=== PATIENT | female | born 1990 | race Caucasian/White ===

== ENCOUNTER 2018-07-18 01:10 | Emergency (ER) | payer OTHER ==
[~2018-07-18] VITALS: Ht 167.6 cm; Wt 95.7 kg
--- OUTSIDE RECORDS SUMMARY | 2018-07-18 01:13 | XMS REPORT ---
Author Author [facility] Address Unknown Phone Unavailable Care Team Providers Care Merry Go Round Attendant Name Role Phone Unavailable Unavailable Problems This patient has no known problems. Allergies, Adverse Reactions, Alerts This patient has no known allergies or adverse reactions. Medications This patient has no known medications.
== END 2018-07-18 01:50 | disposition home or self-care (01) ==
LOC: FSED 01:10
DX: O26.892 Other specified pregnancy related conditions, second trimester (principal); Z3A.21 21 weeks gestation of pregnancy
CPT/HCPCS: 93005; 99283

== ENCOUNTER 2018-09-18 20:03 | Emergency (ER) | payer OTHER ==
[~2018-09-18] VITALS: Ht 167.6 cm; Wt 95.7 kg
[2018-09-18] MEDS ORDERED: ONDANSETRON HCL 4 MG ORAL DISINTEGRATING TAB ONE (20:29)
== END 2018-09-18 21:28 | disposition home or self-care (01) ==
LOC: FSED 20:03
DX: J00 Acute nasopharyngitis [common cold] (principal); R11.0 Nausea
CPT/HCPCS: 99283; Q0162

== ENCOUNTER 2018-11-27 02:52 | Observation (INO) | payer OTHER ==
[~2018-11-27] VITALS: Ht 167.6 cm; Wt 92.6 kg
--- OUTSIDE RECORDS SUMMARY | 2018-11-27 02:55 | XMS REPORT | Summary of Care ---
Author Author [facility] - Health Organization [facility] - Health Address Unknown Phone Unavailable Care Team Providers Care Bedspread Cutter Name Role Phone Francisco Breaux PCP [facility] Unavailable Reason for Referral * (KENNEDY) Referred By Contact Referred To Contact Status Reason Specialty Diagnoses / [place] [address] [place] [address] New Request Psychology, Diagnoses Clinical Child & mood Adolescent disturbance P rocedures CONSULT/REFERRAL CONSTRUCTION GRIP PSYCHOLOGY/MENTAL HEALTH Reason for Visit * Reason Comments MOOD CHANGES * (Routine) Referred By Contact Referred To Contact Status Reason Specialty Diagnoses / Procedures Yuni Castro MD [id number] [place] [address] New Request OB-GYNECOLOGY / Diagnoses Obstetrics & Multiparity Gynecology Obesity affecting in third trimester Normal spontaneous vaginal delivery Acute blood loss anemia P rocedures Discharge Follow-Up: Specialty Service OB-GYNECOLOGY; 4-6 Weeks Encounter Details Care Team Description Date [place] [address] [place] [address] mood disturbance (Primary Dx) 11/20/2018 Routine [facility], [address], [address] [place] [address] Allergies No Known Allergiesdocumented as of this encounter (statuses as of 11/20/2018) Medications No known medicationsdocumented as of this encounter (statuses as of 11/20/2018) Active Problems Problem Noted Date Acute blood loss anemia 11/15/2018 Normal spontaneous vaginal delivery 11/14/2018 39 weeks gestation of 11/13/2018 Multiparity 11/13/2018 Obesity affecting in third trimester 11/13/2018 care, subsequent , first trimester 03/19/2018 Obesity (BMI 30-39.9) 07/05/2017 Pelvic mass in female 05/16/2017 Pain pelvic 05/15/2017 Corpus luteum cyst or hematoma 04/19/2017 Overview: Added automatically from request for surgery [id number] Dysmenorrhea 04/19/2017 Overview: Added automatically from request for surgery [id number] Right knee pain 09/10/2014 Muscle tightness 09/10/2014 Decreased strength 09/10/2014 Poor body mechanics 09/10/2014 Knee stiffness, right 08/28/2014 Genu valgum, right 08/28/2014 Knee crepitus, right 08/28/2014 Quadriceps tendinitis 08/28/2014 It band syndrome, right 08/28/2014 Presence of intrauterine contraceptive device 10/08/2013 Hemorrhagic ovarian cyst 10/08/2013 General counseling for initiation of other contraceptive measures 03/11/2013 Screening for STD (sexually transmitted disease) 03/11/2013 Encounter for routine gynecological examination 03/11/2013 Overview: ICD10 Diagnosis Term Chief Of Planning Utility documented as of this encounter (statuses as of 11/20/2018) Immunizations Name Administration Dates Next Due TDAP (ADACEL) VACCINE 09/10/2018 documented as of this encounter Social History Date Tobacco Use Types Packs/Day Years Used Quit: 04/24/2013 Former Smoker Cigarettes Smokeless Tobacco: Never Used Drinks/Week oz/Week Comments Alcohol Use rarely Yes Financial Resource Strain Answer Date Recorded How hard is it for you to pay for the very basics Not hard at all 11/13/2018 like food, housing, medical care, and heating? Food Insecurity Answer Date Recorded Within the past 12 months, you worried that your Never true 11/13/2018 food would run out before you got money to buy more. Within the past 12 months, the food you bought Never true 11/13/2018 just didn't last and you didn't have money to get more. Transportation Needs Answer Date Recorded In the past 12 months, has lack of transportation No 11/13/2018 kept you from medical appointments or from getting medications? In the past 12 months, has lack of transportation No 11/13/2018 kept you from meetings, work, or getting things needed for daily living? Sex Assigned at Date Recorded Not on file Industry Job Start Date Occupation Not on file Not on file Not on file Travel End Travel History Travel Start No recent travel history available. documented as of this encounter Last Filed Vital Signs Reading Time Taken Comments Vital Sign 128/82 11/20/2018 1:10 PM CDT Blood Pressure 80 11/20/2018 1:10 PM CDT Pulse - - Temperature - - Respiratory Rate - - Oxygen Saturation - - Inhaled Oxygen Concentration 91.6 kg (202 lb) 11/20/2018 1:10 PM CDT Weight 167.6 cm (5' 6") 11/20/2018 1:10 PM CDT Height 32.6 11/20/2018 1:10 PM CDT Body Mass Index documented in this encounter Progress Notes * Sandip Estevez MD - 11/20/2018 1:15 PM CDT Chief complaint: Chief Complaint Patient presents with MOOD CHANGES HPI Yoanna Hunter is a 28 year old female s/p on 11/13/18 who presents f or recurrent crying episodes. Pt reports sadness, mostly due to her dianna ontiveros unavailable as he is working and going to school. -She states she has help at home as her sister and [id number] are there to as sist around the house and with the baby however she is having a hard time dealin g with her being unavailable -Denies SI/HI Histories OB History Para Term AB Living 3 2 2 1 2 SAB TAB Ectopic Multiple Live Births 1 1 2 # Outcome Date GA Lbr Jun/2nd Weight Sex Delivery Anes PTL Lv 3A Term 11/13/18 39w2d 8 lb 14.9 oz (4.05 kg) M NORMAL SPONT EPI, Local N JADEN Comments: Time of : 7:38 PM Maternal Age: 27 y/o; :3; Parity:2 Mother's Blood Type:A pos Baby's Blood Type:not applicable Maternal Serological Test:normal Maternal Group B Strep Screening:negative; Adequate Treatment:not applicable 3B Term 2 Term 12/01/10 39w0d 8 lb 1 oz (3.657 kg) M Vag-Spont EPIDURAL JADEN 1 SAB 2010 Obstetric Comments No D&C w/SAB in 2010 Past Medical History: Diagnosis Date Acute blood loss anemia 11/15/2018 Encounter for IUD removal 09/11/[address] Fernandez in clinic. Endocrine disorder Former cigarette smoker Hemorrhagic ovarian cyst 10/08/2013 Pap smear abnormality of cervix ASCUS 02/2013 Family History Problem Relation Age of Onset Diabetes Father Hypertension Mother Alcohol abuse Mother Diabetes Paternal Grandmother Family Status Relation Name Status Fa Alive Mo 2 yrs ago, Alcohol abuse PGMo (Not Specified) Past Surgical History: Procedure Laterality Date DIAGNOSTIC LAPAROSCOPY N/A 07/05/2017 Surgeon: Aníbal Shaver; Location: [place] [facility] INSERT INTRAUTERINE DEVICE 03/15/2013 MIRENA KNEE SCOPE,DIAGNOSTIC 2008 MASS EXCISION N/A 07/05/2017 Surgeon: Aníbal Shaver; Location: [facility] SUREPATH AND HPV-Q 03/11/2013 ASCUS HPV NEGATIVE Social History Socioeconomic History Marital status: Spouse name: German Ace Number of children: 1 Years of education: Not on file Highest education level: Not on file Occupational History Occupation: Stay at Home Mom Social Needs Financial resource strain: Not hard at all Food insecurity: Worry: Never true Inability: Never true Transportation needs: Medical: No Non-medical: No Tobacco Use Smoking status: Former Smoker Types: Cigarettes Last attempt to quit: 04/24/2013 Years since quittin.5 Smokeless tobacco: Never Used Substance and Sexual Activity Alcohol use: Yes Comment: rarely Drug use: No Sexual activity: Yes Partners: Male control/protection: Condom, IUD Comment: mirena iud inserted 03-15-13 Lifestyle Physical activity: Days per week: Not on file Minutes per session: Not on file Stress: Not on file Relationships Social connections: Talks on phone: Not on file Gets together: Not on file Attends pentecostalism service: Not on file Active member of club or organization: Not on file Attends meetings of clubs or organizations: Not on file Relationship status: Not on file Intimate partner violence: Fear of current or ex partner: Not on file Emotionally abused: Not on file Physically abused: Not on file Forced sexual activity: Not on file Other Topics Concern Not on file Social History Narrative Alin carmen. Social History Substance and Sexual Activity Sexual Activity Yes Partners: Male control/protection: Condom, IUD Comment: mirena iud inserted 03-15-13 Allergies Yoanna has No Known Allergies. Medications Yoanna currently has no medications in their medication list. Review of Systems Constitutional: Negative. Respiratory: Negative. Psychiatric/Behavioral: As per HPI BP 128/82 | Pulse 80 | Ht 5' 6" (1.676 m) | Wt 202 lb (91.6 kg) | LMP 2017 | BMI 32.60 kg/m Pregravid BMI: Could not be calculated Physical Exam Vitals reviewed. Constitutional: Her body habitus is normal. Pulmonary/Chest: Normal inspiratory effort. Neuro/Psychiatric: She has a normal mood and affect. 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 Will place referral to ob psychology, will have patient f/u in 3 weeks, will p katharine for tesuque survey at that visit. ER warnings discussed with the patient an d encouraged open communication with her and family Plan: CONSULT/REFERRAL CONSTRUCTION GRIP PSYCHOLOGY/MENTAL HEALTH SANDIP ESTEVEZ MD #[id number], 11/20/2018 1:56 PM documented in this encounter Plan of Treatment Health Maintenance Due Date Last Done Comments INFLUENZA VACCINE 12/23/2018 PAP SMEAR 04/04/2021 04/04/2018, 02/09/2017, 03/11/2013 DTaP,Tdap,and Td Vaccines 09/10/2028 09/10/2018 (2 - Td) PNEUMOCOCCAL 0-64 YEARS Aged Out No longer eligible based COMBINED SERIES on patient's age to complete this topic documented as of this encounter Results Not on filedocumented in this encounter Visit Diagnoses Diagnosis mood disturbance - Primary Mental disorders of mother, complicating , childbirth, or the puerperium, unspecified as to episode of care documented in this encounter Insurance Type Payer Benefit Subscriber ID Effective Phone Address Plan / Dates Group Medicaid [employer] [place] xxxxxxxxx 2013- PLAN - MANAGED MEDICAID STAR Present documented as of this encounter
--- OUTSIDE RECORDS SUMMARY | 2018-11-27 02:55 | XMS REPORT | Summary of Care ---
Author Author [facility] - Health Organization [facility] - Health Address Unknown Phone Unavailable Care Team Providers Care Senior It Recruiter Name Role Phone Francisco Breaux PCP Mann Beck Unavailable Reason for Referral * (Routine) Referred By Contact Referred To Contact Status Reason Specialty Diagnoses / Procedures Yuni Castro MD [address] [place] [address] New Request OB-GYNECOLOGY Diagnoses Multiparity Obesity affecting in third trimester Normal spontaneous vaginal delivery Acute blood loss anemia P rocedures Discharge Follow-Up: Specialty Service OB-GYNECOLOGY; 4-6 Weeks Reason for Visit * Auth/Cert Referred By Contact Referred To Contact Status Reason Specialty Diagnoses / Procedures Clc [address] [place] [address] Obstetrics Diagnoses INDUCTION Encounter Details Care Team Description Date Type Department Yuni Castro MD [address] [place] [address] 39 weeks gestation of 11/13/2018 [facility] Labor and - Encounter Delivery Unit CLC 5A 11/15/2018 [address] [place] [address] Allergies No Known Allergiesdocumented as of this encounter (statuses as of 11/15/2018) Medications No known medicationsdocumented as of this encounter (statuses as of 11/15/2018) Active Problems Problem Noted Date Acute blood loss anemia 11/15/2018 Normal spontaneous vaginal delivery 11/14/2018 39 weeks gestation of 11/13/2018 Multiparity 11/13/2018 Obesity affecting in third trimester 11/13/2018 care, subsequent , first trimester 03/19/2018 Obesity (BMI 30-39.9) 07/05/2017 Pelvic mass in female 05/16/2017 Pain pelvic 05/15/2017 Corpus luteum cyst or hematoma 04/19/2017 Overview: Added automatically from request for surgery [id number] Dysmenorrhea 04/19/2017 Overview: Added automatically from request for surgery [id number] Right knee pain 09/10/2014 Muscle tightness 09/10/2014 [...] gynecological examination 03/11/2013 Overview: ICD10 Diagnosis Term [employer] Utility Estimated Date of Delivery Comments Yes 11/18/2018 Based on last menstrual period of 02/11/2018 documented as of this encounter (statuses as of 11/15/2018) Immunizations Name Administration Dates Next Due TDAP (ADACEL) VACCINE 09/10/2018 documented as of this encounter Social History Date Tobacco Use Types Packs/Day Years Used Quit: 04/24/2013 Former Smoker Cigarettes Smokeless Tobacco: Never Used Tobacco Cessation: Counseling Given: No Drinks/Week oz/Week Comments Alcohol Use rarely Yes [...] or getting things needed for daily living? Estimated Date of Delivery Comments Yes 11/18/2018 Based on last menstrual period of 02/11/2018 Sex Assigned at Date Recorded Not on file Industry Job Start Date Occupation Not on file Not on file Not on file Travel End Travel History Travel Start No recent travel history available. documented as of this encounter Last Filed Vital Signs Reading Time Taken Comments Vital Sign 114/71 11/15/2018 8:00 AM CDT Blood Pressure 80 11/15/2018 8:00 AM CDT Pulse 37.1 C (98.8 F) 11/15/2018 8:00 AM CDT Temperature 18 11/15/2018 8:00 AM CDT Respiratory Rate 99% 11/15/2018 8:00 AM CDT Oxygen Saturation - - Inhaled Oxygen Concentration 102.1 kg (225 lb) 11/13/2018 6:52 AM CDT Weight 167.6 cm (5' 6") 11/13/2018 6:52 AM CDT Height 36.32 11/13/2018 6:52 AM CDT Body Mass Index documented in this encounter Discharge Summaries * Yuni Castro MD - 11/15/2018 12:02 PM CDT DISCHARGE SUMMARY - VAGINAL DELIVERY Date of Service: 11/15/18 ADMIT DATE: 11/13/2018 DISCHARGE DATE: 11/15/18 ATTENDING MD: Dr. Sawyer Rahman ATTENDING MD AT DISCHARGE: Yuni Castro MD PCP: Francisco Breaux REASON FOR ADMISSION Admit For: Induction of labor FINAL DIAGNOSIS: (the reason, after study, for admitting the patient to the hosp ital) S/P Vaginal Delivery SECONDARY DIAGNOSIS: (any diagnosis that, on this admission, required clinical e valuation, therapeutic treatment, diagnostic procedures, extended hospital stay, or additional nursing care/monitoring) Principal Problem: 39 weeks gestation of (11/13/2018) POA: Yes -S/p -Routine PP Care -Stable for d/c home today Active Problems: Multiparity (11/13/2018) POA: Yes -F/u outpt Obesity affecting in third trimester (11/13/2018) POA: Yes -F/u outpt Normal spontaneous vaginal delivery (11/14/2018) POA: Yes -Routine PP care Acute blood loss anemia (11/15/2018) POA: No -iron PRINCIPAL PROCEDURE: Cephalic vaginal delivery ADDITIONAL PROCEDURES: N/A SIGNIFICANT LAB/X-RAYS: HCT (%) Date Value 11/14/2018 26.9 (L) HGB (g/dL) Date Value 11/14/2018 8.7 (L) 11/13/2018 11.1 (L) Rubella: immune Type and Screen: RH postive DIET: Regular diet ACTIVITY: no strenuous activity, no heavy lifting and pelvic rest Condition: Good DISCHARGE MEDICATIONS: There are no discharge medications for this patient. WOUND CARE: keep perineum clean and dry DISCHARGE: Discharged: Home FOLLOW-UP APPOINTMENT: With Dr. Rahman in 4-6 week(s) Yuni Castro MD documented in this encounter Discharge Instructions * Instructions* Bc Cornejo RN - 11/15/2018 Multidisciplinary Discharge Instructions (may include diet, dressing changes, ac tivity limits, written materials given to patient: DIET: Eat a well balanced diet; drink 6-8 glasses of fluids daily; eat fruits an d green, leafy vegetables. DAILY ACTIVITIES: 1. As much as you feel able to do. Rest when you are tired. 2. Limitations: Specify; No heavy lifting other than your baby for 4 weeks if y ou had surgery. TREATMENT AT HOME 1. Use a well-fitting bra to prevent breast engorgement 2. Resume intercourse as instructed by your physician. 3. Do not use douches or tampons for four weeks. 4. To help prevent urinary tract infection; after each urination and bowel movement, wipe and dry from front to back and change paula pad. 5. Follow discharge instructions regarding baby care. 6. Follow family planning instructions. IMMEDIATE TREATMENT - Call Clinic or Your Physician 1. Increase in pain and tenderness of uterus. 2. Increased vaginal bleeding (bright red blood which soaks 2 pads in 1 hour or pass large clots). 3. Foul smelling vaginal discharge. 4. Burning in the tube that empties the urine from the bladder. 5. Painful breast engorgement or cracked nipples. 6. Pain, discharges, or gaping incision. 7. Temperature greater than 38.0C or 100.4F 8. Pain and tenderness of calf or thigh muscles. 9. No bowel movements in 4 days. For Problems or Questions Call: OB Clinic Family Planning [phone] or Emergency: Go to the closest emergency room or call 911 documented in this encounter Progress Notes * Yuni Castro MD - 11/15/2018 12:01 PM CDT PROGRESS NOTE Subjective: Patient is a 28 year old, S/P , post day 2. She complains of nothing, desires d/c home today. Objective: Vital Signs: BP: (105-114)/(69-71) Temp: [36.9 C (98.5 F)-37.1 C (98.8 F)] Temp source: Oral (11/15 0800) Pulse: [80] Resp: [18] SpO2: [99 %-100 %] Height: -- Weight: -- BMI (calculated): -- Physical Exam: Gen: NAD Chest: RRR, CTAB Abd: NT/ND, fundus firm at umbilicus LE: No TTP/edema Current Medications: Current Facility-Administered Medications Medication Dose Route Frequency Last Rate Last Dose ferrous sulfate tablet 325 mg 325 mg Oral BID 325 mg at 11/14/18 0800 acetaminophen (TYLENOL) tablet 650 mg 650 mg Oral Q6HPRN 650 mg at 1437 benzocaine-menthol (DERMOPLAST) 20-0.5 % topical spray Topical PRN diphenhydrAMINE (BENADRYL) tablet 25 mg 25 mg Oral Q6HPRN docusate calcium (SURFAK) capsule 240 mg 240 mg Oral QDAILYPRN HYDROcodone-acetaminophen (NORCO 5) 5-325 mg tablet 1 tablet 1 tablet Oral Q4HPRN 1 tablet at 11/13/18 2327 ibuprofen (IBU) tablet 600 mg 600 mg Oral Q6HPRN 600 mg at 11/14/18 1437 magnesium hydroxide (MILK OF MAGNESIA) 400 mg/5 mL suspension 30 mL 30 mL O ral QDAILYPRN ondansetron (ZOFRAN (PF)) injection 4 mg 4 mg Slow IV Push Q8HPRN vitamin w/FA (PRENATABS RX) tablet 1 tablet 1 tablet Oral DAILY simethicone (GAS RELIEF) chewable tablet 160 mg 160 mg Oral PC+HSPRN zolpidem (AMBIEN) tablet 5 mg 5 mg Oral QHSPRN Labs: N/A Assessment/Plan: Principal Problem: 39 weeks gestation of (11/13/2018) POA: Yes -S/p -Routine PP Care -Stable for d/c home today Active Problems: Multiparity (11/13/2018) POA: Yes -F/u outpt Obesity affecting in third trimester (11/13/2018) POA: Yes -F/u outpt Normal spontaneous vaginal delivery (11/14/2018) POA: Yes -Routine PP care Acute blood loss anemia (11/15/2018) POA: No -iron Yuni Castro MD * Patricia Pierre FNP - 11/14/2018 10:45 AM CDT BC HUNTER #: [id number] Date of service: 11/14/2018 SUBJECT SCIENTIFIC RESEARCH PROGRESS NOTE SUBJECTIVE: Overnight patient had no complaints. She denied headache, nausea/vomiting, [address] pain/pressure, shortness of breath, RUQ pain, vision disturbance. Patient was tolerating regular diet. She reported pain was controlled with pain meds. Void ing and ambulating without difficulty. She has passed flatus and has not had a bowel movement. Lochia was minimal. OBJECTIVE: BP: (95-172)/(46-90) Temp: [36.7 C (98.1 F)-37.9 C (100.3 F)] Temp source: Oral (11/14 1059) Pulse: [65-147] Resp: [18-20] SpO2: [97 %-100 %] Height: -- Weight: -- Intake/Output Summary (Last 24 hours) at 11/14/2018 1132 Last data filed at 11/14/2018 0215 Gross per 24 hour Intake 2009 ml Output 1340 ml Net 670 ml CONSTITUTIONAL: no apparent distress, appearing age-appropriate. RESPIRATORY: good inspiratory effort to inspections, lungs clear to auscultatio n bilaterally. No wheeze/stridor/crackles bilaterally. CARDIOVASCULAR: regular rate and rhythm. No rubs/gallops/murmurs. GASTROINTESTINAL: abdomen soft, non distended, bowel sound present and active. NEUROLOGICAL/PSYCHIATRIC: alert, awake, and oriented x 3. Normal mood and affec t. EXTREMITIES: No calf tenderness bilaterally. no pitting edema bilaterally. : fundus firm and below umbilicus Labs: WBC (10*3/L) Date Value 11/14/2018 19.29 (H) 11/13/2018 16.59 (H) HGB (g/dL) Date Value 11/14/2018 8.7 (L) 11/13/2018 11.1 (L) HCT (%) Date Value 11/14/2018 26.9 (L) 11/13/2018 34.8 (L) PLT (10*3/L) Date Value 11/14/2018 183 11/13/2018 228 Medications: Current Facility-Administered Medications Medication Dose Route Frequency Last Rate Last Dose ferrous sulfate tablet 325 mg 325 mg Oral BID 325 mg at 11/14/18 0800 acetaminophen (TYLENOL) tablet 650 mg 650 mg Oral Q6HPRN benzocaine-menthol (DERMOPLAST) 20-0.5 % topical spray Topical PRN diphenhydrAMINE (BENADRYL) tablet 25 mg 25 mg Oral Q6HPRN docusate calcium (SURFAK) capsule 240 mg 240 mg Oral QDAILYPRN HYDROcodone-acetaminophen (NORCO 5) 5-325 mg tablet 1 tablet 1 tablet Oral Q4HPRN 1 tablet at 11/13/18 2327 ibuprofen (IBU) tablet 600 mg 600 mg Oral Q6HPRN 600 mg at 11/13/18 2046 magnesium hydroxide (MILK OF MAGNESIA) 400 mg/5 mL suspension 30 mL 30 mL O ral QDAILYPRN ondansetron (ZOFRAN (PF)) injection 4 mg 4 mg Slow IV Push Q8HPRN vitamin w/FA (PRENATABS RX) tablet 1 tablet 1 tablet Oral DAILY simethicone (GAS RELIEF) chewable tablet 160 mg 160 mg Oral PC+HSPRN zolpidem (AMBIEN) tablet 5 mg 5 mg Oral QHSPRN ASSESSMENT Bc Hunter is a 28 year old female s/p spontaneous vaginal delivery on 11/13 @ 1938, day #1. Patient is recovering well: responding appropriately, good urine output, adequate pain control, and stable vitals. PLAN 1. Review: - Estimated blood loss: 450 ml - Vaginal delivery Complications: none -Laceration/epis: 2nd deg paula lac - Preop H/H: 11.1/34.8 Postop H/H: 8.7/26.9, PO iron ordered - Rubella: immune - Type and Screen: A and RH postive 2. - A+, sero neg, RI, VzVi, GBS neg - PVT Ahmed 3. care: - Diet: advance as tolerated - Fluid: Encourage oral intake - Activity: Encourage ambulation. - DVT prophylaxis: encourage ambulation Discharge Planning: continue inpt mgmt today. Anticipate d/c home tomorrow. FARNAZ Arreola 11/14/2018 11:32 AM Associated attestation - Sandip Estevez MD - 11/15/2018 6:10 AM CDT Recovering well, anticipate discharge home tomorrow SANDIP ESTEVEZ MD #[id number], 11/15/2018 6:10 AM * Martha Nelson MD - 11/13/2018 12:18 PM CDT OB Progress Note: SVE 4/50/-2, posterior, at 1215. Recommended AROM for augmentation. Patient agreeable with plan. AROM performed at 1215, with return of moderate clear fluid. Reviewed pain management options with patient. Will plan to recheck again in 2-4 hrs or earlier as indicated. Martha Nelson MD 11/13/2018 12:19 PM documented in this encounter Plan of Treatment Order Schedule Name Type Priority Associated Diagnoses ONCE for 1 Occurrences starting 11/13/2018 until 11/13/2018 RHO (D) Immune Globulin LAB Routine Health Maintenance Due Date Last Done Comments INFLUENZA VACCINE 12/23/2018 PAP SMEAR 04/04/2021 04/04/2018, 02/09/2017, 03/11/2013 DTaP,Tdap,and Td Vaccines 09/10/2028 09/10/2018 (2 - Td) PNEUMOCOCCAL 0-64 YEARS Aged Out No longer eligible based COMBINED SERIES on patient's age to complete this topic documented as of this encounter Procedures Comments Procedure Name Priority Date/Time Associated Diagnosis CBC WITH DIFFERENTIAL Routine 11/14/2018 5:12 AM CDT CBC WITH DIFF Routine 11/14/2018 5:12 AM CDT TYPE AND SCREEN Routine 11/13/2018 6:05 AM CDT GALV ONLY - SYPHILIS KENNEDY 11/13/2018 IGG/IGM 6:03 AM CDT CBC WITH DIFFERENTIAL Routine 11/13/2018 6:03 AM CDT ADC, CLC OR LCC ONLY - KENNEDY 11/13/2018 HIV TYPE 1 AND 2 ANTIBODY 6:03 AM CDT SCREEN WITH P24 HEPATITIS B SURFACE KENNEDY 11/13/2018 ANTIGEN 6:03 AM CDT CBC WITH DIFF Routine 11/13/2018 6:03 AM CDT L&D VISIT (NON-DELIVERED) Routine 10/29/2018 12:01 AM CDT documented in this encounter Results * CBC WITH DIFFERENTIAL (11/14/2018 5:12 AM CDT) WBC 19.29 (H) 4.30 - 11.10 [facility] RBC 2.98 (L) 3.93 - 5.25 10*6/L [facility] HGB 8.7 (L) 11.6 - 15.0 g/dL [facility] HCT 26.9 (L) 35.7 - 45.2 % [facility] MCV 90.3 80.6 - 95.5 fL [facility] MCH 29.2 25.9 - 32.8 pg [facility] MCHC 32.3 31.6 - 35.1 g/dL [facility] RDW-SD 43.9 39.0 - 49.9 fL [facility] RDW-CV 13.2 12.0 - 15.5 % [facility] PLT 183 166 - 358 10*3/L [facility] MPV 9.4 (L) 9.5 - 12.9 fL [facility] NRBC/100 WBC 0.0 0.0 - 10.0 /100 WBCs [facility] NRBC x10^3 <0.01 10*3/L [facility] GRAN MAT (NEUT) 76.7 % [facility] % [facility] IMM GRAN % 1.60 % [facility] LYMPH % 13.2 % [facility] MONO % 7.8 % [facility] EOS % 0.5 % [facility] BASO % 0.2 % [facility] GRAN MAT 14.80 (H) 1.88 - 7.09 10*3/uL [facility] x10^3(ANC) [facility] IMM GRAN x10^3 0.30 (H) 0.00 - 0.06 10*3/uL [facility] LYMPH x10^3 2.54 1.32 - 3.29 10*3/uL [facility] MONO x10^3 1.51 (H) 0.33 - 0.92 10*3/uL [facility] EOS x10^3 0.10 0.03 - 0.39 10*3/uL [facility] BASO x10^3 0.04 0.01 - 0.07 10*3/uL [facility] Specimen Blood - HAND, RIGHT Performing Organization Address City/State/Zipcode Phone Number [facility] CLIA: [id number], [address] [place], [place] [id number] [facility] * Type and Screen - ONCE Routine (11/13/2018 6:05 AM CDT) ABO & RH A Positive LAB Comment: Performed at [facility] Laboratory [facility] Blood Bank [address] [place], [place] [address] Toll Free: [phone] CLIA No. [id number] IAT Negative LAB Comment: Performed at [facility] Laboratory Services - [facility] Blood Bank [address] [place], [place] [address] Toll Free: [phone] CLIA No. [id number] Specimen Blood - VENOUS Performing Organization Address City/State/Zipcode Phone Number BLD [facility] * CBC WITH DIFFERENTIAL (11/13/2018 6:03 AM CDT) WBC 16.59 (H) 4.30 - 11.10 [facility] 10*3/L [facility] RBC 3.83 (L) 3.93 - 5.25 10*6/L [facility] HGB 11.1 (L) 11.6 - 15.0 g/dL [facility] HCT 34.8 (L) 35.7 - 45.2 % [facility] MCV 90.9 80.6 - 95.5 fL [facility] MCH 29.0 25.9 - 32.8 pg [facility] MCHC 31.9 31.6 - 35.1 g/dL [facility] RDW-SD 43.8 39.0 - 49.9 fL [facility] RDW-CV 13.3 12.0 - 15.5 % [facility] PLT 228 166 - 358 10*3/L [facility] MPV 10.0 9.5 - 12.9 fL [facility] NRBC/100 WBC 0.0 0.0 - 10.0 /100 WBCs [facility] NRBC x10^3 <0.01 10*3/L [facility] GRAN MAT (NEUT) 75.5 % [facility] % [facility] IMM GRAN % 1.70 % [facility] LYMPH % 14.9 % [facility] MONO % 7.4 % [facility] EOS % 0.4 % [facility] BASO % 0.1 % [facility] GRAN MAT 12.51 (H) 1.88 - 7.09 10*3/uL [facility] x10^3(ANC) [facility] IMM GRAN x10^3 0.28 (H) 0.00 - 0.06 10*3/uL [facility] LYMPH x10^3 2.48 1.32 - 3.29 10*3/uL [facility] MONO x10^3 1.23 (H) 0.33 - 0.92 10*3/uL [facility] EOS x10^3 0.07 0.03 - 0.39 10*3/uL [facility] BASO x10^3 <0.03 0.01 - 0.07 10*3/uL [facility] Specimen Blood - VENOUS Performing Organization Address City/[facility] Phone Number [facility] CLIA: [id number], [address] [place] [address] [facility] * ADC, CLC OR LCC ONLY - HIV TYPE 1 AND 2 ANTIBODY SCREEN WITH P24 (11/13/2018 6:03 AM CDT) HIV 1/2 AG/AB NON-REACTIVE Nonreactive [facility] Specimen Blood - VENOUS Performing Organization Address City/[facility] Phone Number [facility] CLIA: [id number], [address] [place], [place] [address] [facility] * HEPATITIS B SURFACE ANTIGEN (11/13/2018 6:03 AM CDT) HBsAg HEPATITIS B SURFACE ANTIGEN Negative [facility] NEGATIVE [facility] HBsAg 0.04 [facility] Specimen Blood - VENOUS Performing Organization Address City/[facility]/Zipcode Phone Number [facility] CLIA: [id number], [address] [place] [address] [facility] * GALV ONLY - SYPHILIS IGG/IGM (11/13/2018 6:03 AM CDT) Syphilis Non-reactive Non-reactive [facility] IgG/IgM SERVICES Specimen Blood - VENOUS Narrative Performed At Non-reactive - No serologic evidence of T. pallidum infection. Cannot exclude [facility] incubating or early syphilis. Submit a second specimen in 2-4 weeks if syphilis SERVICES is clinically suspected. Equivocal - Further testing to follow. Reactive - Further testing to follow. Performing Organization Address City/State/Zipcode Phone Number [facility] SERVICES CLIA: [id number], [address] [place] [address] [facility] documented in this encounter Visit Diagnoses Diagnosis 39 weeks gestation of - Primary state, incidental Multiparity Obesity affecting in third trimester Normal spontaneous vaginal delivery Normal delivery Acute blood loss anemia Acute posthemorrhagic anemia documented in this encounter Administered Medications Action Date Dose Rate Site Medication Order MAR Action 11/14/2018 2:37 PM CDT 650 mg acetaminophen (TYLENOL) tablet 650 mg Given 650 mg, Oral, Q6HPRN, Starting Mon11/13/18 at 2020, Until Discontinued, Routine, Pain (scale 1-3) 11/13/2018 8:46 PM CDT benzocaine-menthol (DERMOPLAST) 20-0.5 % Given topical spray Topical, PRN, Starting Mon11/13/18 at 2020, Until Discontinued, Routine, Perineum discomfort 11/14/2018 8:00 AM CDT 325 mg ferrous sulfate tablet 325 mg Given 325 mg, Oral, BID, First dose on Mon11/14/18 at 0800, Until Discontinued, Routine 11/13/2018 11:27 PM CDT 1 tablet HYDROcodone-acetaminophen (NORCO 5) Given 5-325 mg tablet 1 tablet 1 tablet, Oral, Q4HPRN, Starting Mon11/13/18 at 2021, Until Discontinued, Routine, Pain (scale 4-6), Pain (scale 7-10) 11/14/2018 2:37 PM CDT 600 mg ibuprofen (IBU) tablet 600 mg Given 600 mg, Oral, Q6HPRN, Starting Mon11/13/18 at 2020, Until Discontinued, Routine, Pain (scale 4-6) 600 mg Given 11/13/2018 8:46 PM CDT Action Date Dose Rate Site Medication Order MAR Action 11/13/2018 6:06 AM CDT 1,000 mL 125 mL/hr lactated ringers IV infusion 1,000 mL New Bag at 125 mL/hr, 1,000 mL, IV Infusion, CONTINUOUS, Starting Mon11/13/18 at 0645, Until Mon11/13/18 at 2022, Routine 11/13/2018 7:57 PM CDT 20 mL lidocaine 1% (XYLOCAINE) 10 mg/mL (1 %) Given injection 30 mL 30 mL, Infiltration, PRN - SEE INSTRUCTIONS, Starting Mon11/13/18 at 0546, Until Mon11/13/18 at 2022, Routine, Local anesthesia, For laceration repair only as a local anesthetic as indicated. 11/13/2018 6:45 PM CDT 20 kylah-units/min 60 mL/hr LR 1000 mL + oxytocin 20 units IV Rate Change Solution 2 kylah-units/min (6 mL/hr), at 6 mL/hr, IV Infusion, TITRATE, Starting Mon11/13/18 at 0546, Until Mon11/13/18 at 2022, KENNEDY, Oxytocin Induction / Augmentation of Labor. 18 kylah-units/min 54 mL/hr Rate Change 11/13/2018 6:00 PM CDT 16 kylah-units/min 48 mL/hr Rate Change 11/13/2018 4:30 PM CDT 11/13/2018 8:48 PM CDT 999 mL/hr LR 1000 mL + oxytocin 20 units IV Given Solution at 999 mL/hr, IV Infusion, ONCE, 1 dose, Mon11/13/18 at 2130, Routine 11/13/2018 3:12 PM CDT 30 mL sodium citrate-citric acid (BICITRA) Given 500-334 mg/5 mL solution 30 mL 30 mL, Oral, PRE-PROCEDURE ONCE, 1 dose, Starting Mon11/13/18 at 0546, Until Mon11/13/18 at 1512, Routine, Surgery/Procedure documented in this encounter Insurance Type Payer Benefit Subscriber ID Effective Phone Address Plan / Dates Group Medicaid [employer] [place] xxxxxxxxx 2013- PLAN - MANAGED MEDICAID STAR Present documented as of this encounter
--- OUTSIDE RECORDS SUMMARY | 2018-11-27 02:55 | XMS REPORT | Summary of Care ---
Author Author [facility] - Health Organization [facility] - Health Address Unknown Phone Unavailable Care Team Providers Care Newspaper Peddler Name Role Phone Francisco Breaux PCP Mann Beck Unavailable Reason for Visit * Reason Comments Assessment Encounter Details Care Team Description Date Type Department Rosalie Rahman, DO [address] [place] [id number] Assessment 11/19/2018 Telephone [facility], [address], [address] [address] Allergies No Known Allergiesdocumented as of this encounter (statuses as of 11/19/2018) Medications No known medicationsdocumented as of this encounter (statuses as of 11/19/2018) Active Problems Problem Noted Date Acute blood loss anemia 11/15/2018 Normal spontaneous vaginal delivery 11/14/2018 39 weeks gestation of 11/13/2018 Multiparity 11/13/2018 Obesity affecting in third trimester 11/13/2018 care, subsequent , first trimester 03/19/2018 Obesity (BMI 30-39.9) 07/05/2017 Pelvic mass in female 05/16/2017 Pain pelvic 05/15/2017 Corpus luteum cyst or hematoma 04/19/2017 Overview: Added automatically from request for surgery [id number] Dysmenorrhea 04/19/2017 Overview: Added automatically from request for surgery [id number] Right knee pain 09/10/2014 Muscle tightness 09/10/2014 [...] gynecological examination 03/11/2013 Overview: ICD10 Diagnosis Term Operations Officer Afloat Utility documented as of this encounter (statuses as of 11/19/2018) Immunizations Name Administration Dates Next Due TDAP [...] of this encounter Last Filed Vital Signs Not on filedocumented in this encounter Plan of Treatment Care Team Description Date [place] [address] [place] [address] [phone] 11/20/2018 Routine Obstetrics & Gynecology Visit Health Maintenance Due Date Last Done Comments INFLUENZA VACCINE 12/23/2018 PAP SMEAR 04/04/2021 04/04/2018, 02/09/2017, 03/11/2013 DTaP,Tdap,and Td Vaccines 09/10/2028 09/10/2018 (2 - Td) PNEUMOCOCCAL 0-64 YEARS Aged Out No longer eligible based COMBINED SERIES on patient's age to complete this topic documented as of this encounter Results Not on filedocumented in this encounter Insurance Type Payer Benefit Subscriber ID Effective Phone Address Plan / Dates Group Medicaid [employer] [place] xxxxxxxxx 2013- PLAN - MANAGED MEDICAID STAR Present documented as of this encounter
--- OUTSIDE RECORDS SUMMARY | 2018-11-27 02:55 | XMS REPORT | Summary of Care ---
Author Author [facility] - Health Organization [facility] - Health Address Unknown Phone Unavailable Care Team Providers Care Biology Professor Name Role Phone Francisco Breaux PCP Mann Beck Unavailable Encounter Details Care Team Description Date Type Department Doctor Unassigned, [place] [address] [place] [address] 11/13/2018 Orders Only [facility] [address] [place] [address] Allergies No Known Allergiesdocumented as of this encounter (statuses as of 11/16/2018) Medications No known medicationsdocumented as of this encounter (statuses as of 11/16/2018) Active Problems Problem Noted Date Acute blood loss anemia 11/15/2018 Normal spontaneous vaginal delivery 11/14/2018 39 weeks gestation of 11/13/2018 Multiparity 11/13/2018 Obesity affecting in third trimester 11/13/2018 care, subsequent , first trimester 03/19/2018 Obesity (BMI 30-39.9) 07/05/2017 Pelvic mass in female 05/16/2017 Pain pelvic 05/15/2017 Corpus luteum cyst or hematoma 04/19/2017 Overview: Added automatically from request for surgery [id number] Dysmenorrhea 04/19/2017 Overview: Added automatically from request for surgery [id number] Right knee pain 09/10/2014 Muscle tightness 09/10/2014 [...] gynecological examination 03/11/2013 Overview: ICD10 Diagnosis Term Facilities Engineering Manager Utility Estimated Date of Delivery Comments Yes 11/18/2018 Based on last menstrual period of 02/11/2018 documented as of this encounter (statuses as of 11/16/2018) Immunizations Name Administration Dates Next Due TDAP [...] filedocumented in this encounter Plan of Treatment Health Maintenance Due Date Last Done Comments INFLUENZA VACCINE 12/23/2018 PAP SMEAR 04/04/2021 04/04/2018, 02/09/2017, 03/11/2013 DTaP,Tdap,and Td Vaccines 09/10/2028 09/10/2018 (2 - Td) PNEUMOCOCCAL 0-64 YEARS Aged Out No longer eligible based COMBINED SERIES on patient's age to complete this topic documented as of this encounter Procedures Comments Procedure Name Priority Date/Time Associated Diagnosis HOSPITAL ADMISSION Routine 11/13/2018 12:01 AM CDT documented in this encounter Results Not on filedocumented in this encounter Insurance Type Payer Benefit Subscriber ID Effective Phone Address Plan / Dates Group Medicaid [employer] [place] xxxxxxxxx 2013- PLAN - MANAGED MEDICAID STAR Present documented as of this encounter
[2018-11-27 03:32] LABS: BILIRUBIN,URINE NEGATIVE (NEGATIVE); COLOR,URINE YELLOW (YELLOW); KETONES,URINE NEGATIVE (NEGATIVE); LEUKOCYTE ESTERASE ,URINE SMALL (NEGATIVE); NITRITE,URINE NEGATIVE (NEGATIVE); PROTEIN,URINE DIPSTICK TRACE (NEGATIVE); URINE UROBILINOGEN 0.2 mg/dL (0.2 - 1)
[2018-11-27 03:36] LABS: CLARITY,URINE CLOUDY (CLEAR)
[2018-11-27 03:37] LABS: PREGNANCY TEST, URINE NEGATIVE (NEGATIVE)
[2018-11-27 03:38] LABS: BASOPHILS # (AUTO) 0.1 (0.0-0.1); BASOPHILS % 0.4 % (0.0-1.0); EOSINOPHILS # (AUTO) 0.1 (0.0-0.4); EOSINOPHILS % 0.8 % (0.0-6.0); HEMATOCRIT 35.6 % (34.2-44.1); HEMOGLOBIN 11.2 g/dL (12.0-16.0); LYMPHOCYTES % 27.8 % (18.0-39.1); MEAN CORPUSCULAR HEMOGLOBIN 27.9 pg (28-32); MEAN CORPUSCULAR HGB CONC 31.5 g/dL (31-35); MEAN CORPUSCULAR VOLUME 88.6 fL (81-99); MONOCYTES # (AUTO) 0.9 (0.2-0.8); MONOCYTES % 6.3 % (4.4-11.3); NEUTROPHILS # (AUTO) 9.2 (2.1-6.9); NEUTROPHILS % 64.3 % (38.7-80.0); PLATELET COUNT 404 x10e3/uL (140-360); RED BLOOD COUNT 4.02 x10e6/uL (3.6-5.1)
[2018-11-27 03:49] LABS: BACTERIA,URINE MANY /HPF; EPITHELIAL CELLS,URINE FEW /LPF; RBC,URINE >50 /HPF (0-5); WBC,URINE (MAN) 21-50 /HPF (0-5)
[2018-11-27 03:50] LABS: MUCUS,URINE FEW (RARE)
[2018-11-27 03:53] LABS: ALANINE AMINOTRANSFERASE 18 IU/L (0-55); ALBUMIN/GLOBULIN RATIO 0.9 (0.8-2.0); ALKALINE PHOSPHATASE 139 IU/L (40-150); BLOOD UREA NITROGEN 13 mg/dL (7-26); BUN/CREATININE RATIO 17 (6-25); CALCIUM 9.2 mg/dL (8.4-10.2); CARBON DIOXIDE 19 mmol/L (22-29); CHLORIDE 109 mmol/L (98-107); CREATINE KINASE 63 IU/L (29-168); CREATININE, SERUM 0.75 mg/dL (0.57-1.11); EST GLOMERULAR FILTRATION RATE > 60 ML/MIN (60-); GLUCOSE 78 mg/dL (74-118); SODIUM 142 mmol/L (136-145)
[2018-11-27] MEDS ORDERED: SODIUM CHLORIDE 0.9% 50ML 50 ML ONE (04:10)
[2018-11-27] MEDS ORDERED: IOPAMIDOL 370 MG/ML 200 ML INFUS..BTL INJ ONE (04:11)
[2018-11-27] MEDS ORDERED: KETOROLAC TROMETHAMINE 30 MG/ML VIAL IV STA (04:49)
[2018-11-27] MEDS ORDERED: CEFTRIAXONE SOD 1 GM VIAL ONE (04:55)
--- NOTE | 2018-11-27 04:57 | Diagnostic Imaging Report ---
EXAM: CT Chest WITH contrast 11/27/2018 3:54 AM INDICATION: Chest pain. Pulmonary embolism. COMPARISON: None TECHNIQUE: Chest was scanned utilizing a multidetector helical scanner from the lung apex through the level of the adrenal glands without administration of IV contrast. Coronal and sagittal reformations were obtained. Pulmonary embolism protocol was performed. IV CONTRAST: 100 mL of Isovue 300 RADIATION DOSE: Total DLP: 578.70 mGy*cm Estimated effective dose: (DLP x 0.014 x size factor) mSv COMPLICATIONS: None FINDINGS: LINES/ TUBES: None. LUNGS AND AIRWAYS: Filling defect within the posterior right lower lobe segmental pulmonary artery as seen on axial images 73 series 2, and coronal reconstruction image 59. There is blood flow distal to it. Questionable nonocclusive filling defect in a posterior inferior right upper lobe segmental artery as seen on coronal image 55. 6 mm pleural-based nodule in the left lung base posteriorly on image 94 series 3. Airways are normal. PLEURA: The pleural spaces are clear. HEART AND MEDIASTINUM: The thyroid gland is normal. No mediastinal, hilar or axillary lymphadenopathy. The heart is normal in size.. There is no pericardial effusion. UPPER ABDOMEN: Limited non-contrast views of the upper abdomen show no abnormality within the visualized liver, spleen, pancreas, or kidneys. The adrenal glands are normal. BONES: The visualized bony thorax is within normal limits. SOFT TISSUES: Unremarkable. IMPRESSION: 1. Nonocclusive thrombus in a posterior right lower lobe segmental pulmonary artery. 2. 6 mm nodule in the left lung base posteriorly. Recommend follow-up CT chest nodule protocol in 6-12 months. Signed by: Dr. Tomás Lozoya M.D. on 11/27/2018 4:53 AM
[2018-11-27] MEDS ORDERED: CEFTRIAXONE SOD 1 GM/NS 50 ML 50 ML IV ONE (05:00)
[2018-11-27] MEDS ORDERED: SODIUM CHLORIDE 0.9% 1000ML 1,000 ML IV SCH ×2 (05:00→13:30)
[2018-11-27] MEDS ORDERED: CEFTRIAXONE SOD 1 GM/NS 50 ML 50 ML IV SCH (05:45)
[2018-11-27] MEDS ORDERED: RIVAROXABAN 20 MG TABLET ONE (05:52)
[2018-11-27] MEDS ORDERED: RIVAROXABAN 20 MG TABLET PO SCH ×2 (06:00→17:00)
--- NOTE | 2018-11-27 06:53 | NUR ---
RECEIVED REPORT FROM BON HERNANDEZ
--- NOTE | 2018-11-27 08:30 | NUR ---
RESTING COMFORTABLE. VSS. FOOD TRAY AT BEDSIDE. PT SLEEPING
--- NOTE | 2018-11-27 10:12 | NUR ---
SLEEPING COMFORTABLY. VSS. SB NO ECTOPY. FM AT BEDSIDE. UPDATED PLAN OF CARE. PENDING VENOUS DOPPLER TECH
--- NOTE | 2018-11-27 12:52 | NUR ---
SEEN IN ER BY DR PALUMBO
--- NOTE | 2018-11-27 13:29 | NUR ---
Patient admitted to unit from ER. Patient arrived via stretcher. patient is AAOx3. patient is post 12 days. Patient noted to have some shortness of breath on exertion. Patient has no c/o chest pain at this time. Ambulates on her own. No edema noted. Patient is having some vaginal bleeding still from having her baby 12 days ago. No other c/o pain at this time. Right AC IV in place.
[2018-11-27 14:23] VITALS: BP 122/63
[2018-11-27 14:27] VITALS: BP 122/63
[2018-11-27 16:01] VITALS: BP 153/83
[2018-11-27] MEDS: SUCRALFATE 1 GM/10 ML SUSP NG SCH ×2 (17:33→21:00)
[2018-11-27] MEDS: PANTOPRAZOLE SOD 40 MG TABEC PO SCH (17:33)
--- NOTE | 2018-11-27 18:10 | History and Physical ---
Medicine History and Physical. CHIEF COMPLAINT: Abdominal pain, chest pain, and shortness of breath. HISTORY OF PRESENT ILLNESS: A 28-year-old female with no past medical history, currently approximately 13 days now, who comes into the ED with complaints of underlying epigastric abdominal pain, left-sided chest pain and shortness of breath. The patient reports this began suddenly yesterday with shortness of breath on the left side and rib cage area. Also, endorses some chest pain. Does report having care. Currently, during my evaluation, she denies any chest pain or any palpitations. CT angiogram of the chest was consistent with a possible nonocclusive thrombus in the right lower segment of the pulmonary artery, which is opposite where she has a current pain. Does report decreased oral intake with underlying dehydration as well. The patient seen and evaluated at bedside on the medical floor in the ER. She is currently doing well with no other issues at this time. Hematology and Cardiology have been consulted. REVIEW OF SYSTEMS: Pertinent positives: Progressive abdominal pain, nausea, vomiting, and left-sided chest pain. Pertinent negatives: Denies any palpitation, dysuria, hematuria, frequency, urgency, lightheadedness, dizziness, cough, congestion, or any other complaints. Rest of the 14-point review of systems are reviewed with the patient and are negative. ALLERGIES: NO KNOWN DRUG ALLERGIES. HOME MEDICATIONS: Reports none. PAST MEDICAL HISTORY: She is currently 13 days now. PAST SURGICAL HISTORY: Reports none. FAMILY HISTORY: Hypertension and diabetes. SOCIAL HISTORY: No drugs. No alcohol. Does not smoke. Good social support. PHYSICAL EXAMINATION: VITAL SIGNS: Temperature is 98.7, pulse , respiratory rate is 16, blood pressure 111/68, and pulse ox 100% on room air. GENERAL: Not in acute distress. Alert and oriented x3. Cooperative on examination. HEENT: Head; normocephalic, atraumatic. Eyes; pupils are equal, round, and reactive to light bilaterally. Extraocular movements intact bilaterally. Throat; no evidence of erythema or exudates in the posterior pharynx. Has poor dentition. NECK: Supple. Good range of motion. PULMONARY: Clear to auscultation bilaterally. No wheezing, no rales, no rhonchi, no crackles appreciated. CARDIOVASCULAR: Positive S1 and S2. No murmurs, rubs, or gallops appreciated. ABDOMEN: Soft, nondistended, and nontender to palpation. Bowel sounds present. MUSCULOSKELETAL: Strength is 5/5 throughout. No evidence of any muscle deficits on examination. No weakness appreciated. NEUROLOGIC: Cranial nerves II through XII grossly intact. No evidence of any neurological deficits on exam. SKIN: Intact. Warm to touch. Good cap refill. PSYCHIATRIC: Normal affect and mood. EXTREMITIES: No edema. Good range of motion throughout. LABORATORY FINDINGS: Show white count 14.2, hemoglobin 11.2, hematocrit is 35.6, platelets of 404. D-dimer was elevated at 917. Chemistry; sodium 142, potassium 4, chloride 109, bicarb 19, anion gap of 18, BUN 13, creatinine 0.75, glucose 70, calcium 9.2, total bilirubin is 0.2, AST 24, and ALT 18. Troponin is 0.006. Total protein 6.5. Urinalysis consistent with UTI. IMAGING STUDIES: Chest CT shows a nonocclusive thrombus in the posterior right lower lobe segmental pulmonary artery. A 6 mm nodule on the left lung base posteriorly. Get repeat CT in 6 to 12 months. Venous Doppler lower extremities are pending. MICROBIOLOGY: None. IMPRESSION: 1. Epigastric abdominal pain with associated nausea and vomiting, now improving. 2. Concerns for acute pulmonary embolism seen on CTA of the chest. 3. Atypical chest pain. 4. . PLAN: At this time, I will put her on oral Protonix and Carafate for now. Continue with IV fluids. Get repeat labs in the morning. We are going to advance her diet and see how she feels. In terms of her probable acute PE, Hematology has been consulted. She was given oral Xarelto and we will continue with that. I did discuss this with pharmacy. This apparently does secreted the breast milk and I discussed this with the patient at bedside as well. She reports that she does not want to do any breast-feeding at this time. I advised her that in the event she does, we can switch this medication to warfarin, but at this time, she is not interested in breast-feeding at all. This will also be reiterated with the pastoral assistant with the patient as well at bedside. I discussed this with her with the nurse present and she verbalized understanding. I will go ahead and get Cardiology to get a 2D echo because she was complaining of chest pain to avoid any cardiomyopathy. We will get a.m. labs as well. Continue with IV fluids and monitor very closely. MD NELI Byers/CHANTAL /[id number]
[2018-11-27 20:15] VITALS: BP 129/70
--- NOTE | 2018-11-27 23:47 | Consultation ---
DATE OF CONSULTATION: 11/27/2018 REASON FOR CONSULTATION: Cardiomyopathy. CHIEF COMPLAINT: Chest pain and shortness of breath. HISTORY OF PRESENT ILLNESS: This is a 28-year-old female with no medical history other than had a vaginal delivery recently on November 13, 2018. The patient presents to [facility] ER with complaints of back pain and shortness of breath that started one day ago, was woken up, also with some substernal chest tightness, came to the ER, was evaluated, a CT was done showing a posterior right lower lobe segmental PE. The patient has been started on Xarelto therapy. Hematology has been consulted. The patient was seen with nurse at bedside. The patient reports back pain, shortness of breath since yesterday, was woken up. Denies any recent travels, any hormone replacement therapy. Denies any family history of colon disorders or bleeding tendencies. Currently, the patient is comfortable. Denies any chest pain or shortness of breath. Denies any lower extremity edema. PAST MEDICAL HISTORY: No medical history other than recent vaginal delivery on November 13, 2018. Denies any complications during delivery. PAST SURGICAL HISTORY: Right knee surgery. SOCIAL HISTORY: She is unemployed. She has 2 kids, she reports are healthy, most recent on November 13, 2018. Denies any alcohol use or tobacco use. FAMILY HISTORY: Mother , unknown reason. Father alive. He apparently has a history of diabetes and also apparently he has a questionable history of CAD. ALLERGIES: NO KNOWN ALLERGIES. MEDICATIONS: No medications. REVIEW OF SYSTEMS: GENERAL: Denies any weight changes, fatigue, weakness, fevers, chills, or night sweats. SKIN: No rashes, sores, or bruises. HEENT: Denies any nausea, vomiting, vision changes, blurred vision, double vision, earaches, epistaxis, sore throat, swollen neck, or bleeding gums. CARDIAC: Denies any exertional chest pain; however, present with some substernal chest tightness. Denies any orthopnea, PND, or lower extremity edema. RESPIRATORY: Positive for shortness of breath. Denies any cough or hemoptysis. GI: Reports good appetite. Denies any nausea, vomiting, diarrhea, constipation, hematemesis, or melena. URINARY: Denies any frequency, urgency, polyuria, dysuria, or hematuria. VASCULAR: Denies any lower extremity edema or claudication. MUSCULOSKELETAL: Denies any muscle weakness, joint pains, or swelling. NEUROLOGIC: Denies any tingling, tremors, weakness, paralysis, fainting, blackouts, or seizures. HEMATOLOGY: Denies any anemia or easy bruising. ENDOCRINE: Denies heat or cold intolerance, polyuria, polydipsia, or polyphagia. PHYSICAL EXAMINATION: GENERAL: Appears stated age, reliable informant, in no acute distress. SKIN: No rashes or bruises. HEENT: Normocephalic. Pupils are equal and reactive. Extraocular movement intact. Trachea midline. Oral mucosa pink. No JVD. No thyromegaly. No carotid bruits. HEART: Regular rate and rhythm. No murmurs or clicks. LUNGS: Bilateral breath sounds clear to auscultation. Good airway entry. ABDOMEN: Soft, nontender, nondistended. No organomegaly noted. MUSCULOSKELETAL: No muscle weakness. VASCULAR: +2 bilateral radial pulses, +2 DP, PT pulses bilaterally. NEUROLOGIC: Cranial nerves II through XII seem intact. RADIOLOGY: CTA chest showing posterior right lower lobe segmental PE. EKG showing sinus christina, heart rate about 49. Of note, the computer is down currently, unable to assess labs. ASSESSMENT: 1. Pulmonary embolism. 2. Urinary tract infection. 3. Recent childbirth, November 13, 2018. PLAN: The patient presents with some back pain, shortness of breath, noted with PE, has been started on Xarelto therapy. Hematology has been consulted. The patient denies any recent travels or any hormone replacement therapy. Denies any history of clotting disorder or bleeding tendencies. Echo venous Doppler has been done to be read by Cardiology attending. The patient has been started on oral anticoagulant therapy. We will defer anticoagulation therapy to Hematology. We will continue to monitor the patient. Thank you very much for this consult. SEEN AND EVALUATED DISCUSSED WITH FAMILY Dictated by Cristóbal Laird, FABI Echo Terrell MD DC/CHANTAL /[id number] FLEX
[2018-11-28] VITALS: BP 106/70
[2018-11-28 04:55] VITALS: BP 105/59
[2018-11-28] MEDS ORDERED: RIVAROXABAN 20 MG TABLET PO SCH ×2 (06:00→06:30)
[2018-11-28 06:33] LABS: BASOPHILS % 0.3 % (0.0-1.0); EOSINOPHILS # (AUTO) 0.2 (0.0-0.4); EOSINOPHILS % 2.1 % (0.0-6.0); HEMATOCRIT 34.8 % (34.2-44.1); HEMOGLOBIN 11.2 g/dL (12.0-16.0); LYMPHOCYTES # (AUTO) 2.3 (1.0-3.2); MEAN CORPUSCULAR HEMOGLOBIN 28.6 pg (28-32); MEAN CORPUSCULAR HGB CONC 32.2 g/dL (31-35); MEAN CORPUSCULAR VOLUME 88.8 fL (81-99); MONOCYTES # (AUTO) 0.6 (0.2-0.8); MONOCYTES % 5.9 % (4.4-11.3); NEUTROPHILS # (AUTO) 7.5 (2.1-6.9); NEUTROPHILS % 70.3 % (38.7-80.0); PLATELET COUNT 341 x10e3/uL (140-360); RED BLOOD COUNT 3.92 x10e6/uL (3.6-5.1); RED CELL DISTRIBUTION WIDTH 13.2 % (11.7-14.4)
[2018-11-28 06:50] LABS: ANION GAP 13.8 mmol/L (8-16); BLOOD UREA NITROGEN 11 mg/dL (7-26); BUN/CREATININE RATIO 15 (6-25); CALCIUM 8.7 mg/dL (8.4-10.2); CARBON DIOXIDE 19 mmol/L (22-29); CHLORIDE 111 mmol/L (98-107); CREATININE, SERUM 0.73 mg/dL (0.57-1.11); EST GLOMERULAR FILTRATION RATE > 60 ML/MIN (60-); GLUCOSE 86 mg/dL (74-118); POTASSIUM 3.8 mmol/L (3.5-5.1); SODIUM 140 mmol/L (136-145)
[2018-11-28 08:19] VITALS: BP 121/58
[2018-11-28] MEDS: SUCRALFATE 1 GM/10 ML SUSP NG SCH ×2 (08:19→10:51)
[2018-11-28] MEDS: PANTOPRAZOLE SOD 40 MG TABEC PO SCH (08:20)
[2018-11-28 09:03] VITALS: BP 121/58
--- NOTE | 2018-11-28 09:10 | NUR ---
Cristóbal mendez TEXTILE BROKER aware HR 40s, asymptomatic.
[2018-11-28] MEDS ORDERED: eliquis PO (11:22)
--- NOTE | 2018-11-28 11:52 | NUR ---
Right AC IV discontinued. No signs of infiltration noted. 2x2 gauze and tape placed. Taken via wheelchair by PCT to personal car. Accompanied by family member. AAOX4 to time, person,place, situation. Respirations even and unlabored. Denies pain. Discharge instructions, rx, and all personal belongings taken with patient.
--- NOTE | 2018-11-29 01:07 | Discharge Summary ---
FINAL DISCHARGE DIAGNOSES: 1. Abdominal pain with nausea and vomiting, resolved, likely secondary to gastritis. 2. Acute pulmonary embolism seen on CT of the chest-discharged on oral anticoagulation, Eliquis for recommendations by Hematology. 3. Atypical chest pain. 4. Recent . CONSULTANTS: Cardiology and Hematology. VITAL SIGNS: Temperature is 97.8, pulse 66, respiratory rate is 18, blood pressure 121/58, pulse ox 95% on room air. LAB FINDINGS: Show white count 10.7, hemoglobin 11.2, hematocrit 35, and platelets of 341. There are several coagulation studies that are pending. D-dimer was 917. She was advised to follow up on these results. Chemistry; sodium 140, potassium 3.8, chloride 111, bicarb 19, anion gap of 13, BUN is 11, creatinine is 0.73, glucose 86, calcium is 8.7. LFTs within normal range. Troponins were all negative. TSH is 0.428. Urinalysis negative. Immunology studies are pending. Microbiology none. IMAGING STUDIES: CTA of the chest shows a nonocclusive thrombus in the right lower lobe segmental pulmonary artery. There is 6 mm nodule in the left lung base, recommend outpatient followup CT, which I discussed this with the patient and mother at bedside and they verbalized understanding to follow up closely. Lower extremity venous Doppler was negative. A 2D echo shows an EF of more than 55% to 60%. HOSPITAL COURSE: A 28-year-old female, who came into the ED with complaints of abdominal pain, nausea, and vomiting. The patient was treated for underlying gastritis, antinausea medication and IV fluids. The patient's symptoms resolved and was tolerating diet well prior to being discharged home. She did have an underlying complaints of chest pain, in which CTA of the chest was performed, found to have an acute pulmonary embolism. Cardiology and Hematology were consulted. Cardiac enzymes were negative. A 2D echo was normal and no longer cardiac telemetry. EKG showed no acute findings. The patient was cleared for discharge by Cardiology. In relation to Hematology, the patient was started on oral Xarelto and then converted to Eliquis due to insurance purposes. The patient was highly educated in terms of not do any while on Eliquis or Xarelto as these medications do secrete in the breast milk. She and her mother understood and verbalized understanding. This was reiterated to her on several occasions as well as the feltmaker reiterated to her as well as the bale sewer. She states that she will bottle-feed and not do any or any breast milk feeding to child. She was advised to follow up with Hematology in about 2 to 3 weeks as there are several serologies that are still pending that are still in the labs. She verbalized understanding. CT chest shows a pulmonary nodule and needs to follow up in about 3 to [address] and the family verbalized and the patient verbalized understanding to follow up close with the PCP. On discharge, the patient was cleared for discharge by Hematology and Cardiology. The patient was doing well back to normal baseline prior to being discharged home. She was also warned about any type of bleeding that she is now currently on blood thinners that she needs to follow up, come to the ER as soon as possible if she notices any increase of bleeding. She did receive her oral Xarelto this morning and I advised not to start her anticoagulation until tomorrow morning at 9:00 a.m. She verbalized understanding. On the day of discharge, vital signs are stable. Labs reviewed and stable. The patient was seen and evaluated, examined thoroughly on the day of discharge. No other complaints. The patient verbalized understanding and agreed to plan of care to follow up accordingly as an outpatient with the primary care physician in 1 week and bale sewer in 2 to 3 weeks time as well as Cardiology in 1 month time. MEDICATIONS: See med reconciliation form. DISPOSITION: Home. CONDITION: Stable. DIET: Heart healthy. In the event of any worsening symptoms, the patient advised to come back to the ED for further evaluation. Discharge summary took greater than 35 minutes. MD NELI Byers/CHANTAL /[id number]
--- NOTE | 2018-11-29 01:37 | Consultation ---
DATE OF CONSULTATION: 11/27/2018 HISTORY OF PRESENT ILLNESS: Yoanna Hunter is a 28-year-old female, who was referred for evaluation of pulmonary embolus. The patient has had her 2nd without any difficulty, vaginal delivery. She is approximately three weeks post second baby and the patient presented with shortness of breath, subsequently a CAT scan showed the patient to have no pulmonary embolus. SOCIAL HISTORY: Noncontributory. FAMILY HISTORY: Noncontributory. ALLERGIES: REPORTED NONE. MEDICATIONS: At this time: 1. Xarelto. 2. Protonix. 3. Sodium chloride. REVIEW OF SYSTEMS: HEENT: Normal. CARDIAC: Normal. RESPIRATORY: Pulmonary embolus confirmed by CAT scan of the chest. GI: Normal. : Normal. MUSCULOSKELETAL: Normal. SKIN: Normal. BREASTS: Normal. NEUROENDOCRINE: Normal. PHYSICAL EXAMINATION: GENERAL: A remarkable female with no palpable adenopathy. HEART: Within normal limits. LUNGS: Clear. ABDOMEN: Soft. BREAST: Deferred. RECTAL: Deferred. VAGINAL: Deferred. CENTRAL NERVOUS SYSTEM: Essentially normal. LABORATORY DATA: Sodium 142, potassium 4.0, potassium 4.0, chloride 109, CO2 of 19, BUN 13, creatinine 0.76, glucose 78, hemoglobin 11.2, hematocrit 35.6, [place] [address], and platelets 404,000. Bilirubin 0.2, SGOT 24, SGPT 18, alkaline phosphatase 139. CT of the chest showed the patient to have pulmonary embolus. IMPRESSION: 1. . 2. Pulmonary embolus. PLAN: Plan is to have a D-dimer, thrombophilia profile, no breast-feed and continue anticoagulation a minimum of 6 months. It was stressed again and again not to feed the baby on anticoagulants. The patient is suggested to see me back in the office in about 6 weeks for both a repeat D-dimer and to assess the thrombophilia profile. MD UNIQUE Matos/CHANTAL /[id number]
== END 2018-11-28 11:52 | disposition home or self-care (01) ==
LOC: ER 02:52 → ERHOLD 05:46 → MED/SURG 13:34
PROVIDERS: ADMIT Internal Medicine; ATTEND Internal Medicine
DX: O88.83 Other embolism in the puerperium (principal); O86.20 Urinary tract infection following delivery, unspecified; R07.89 Other chest pain; Z82.49 Family history of ischemic heart disease and other diseases of the circulatory system; Z83.3 Family history of diabetes mellitus; K52.9 Noninfective gastroenteritis and colitis, unspecified
CPT/HCPCS: 36415 ×2; 71260; 80048; 80053; 81001; 81025; 81240; 81241; 81291; 81400; 82550; 82553; 84443; 84484; 85025 ×2; 85300; 85303; 85306; 85307; 85379; 85420; 85597; 85613; 85730; 86147; 93005; 93306; 93970; 96374; 99285; G0378 ×2; J0696; J1885; J7030; Q9967; S0164 ×2

== ENCOUNTER 2018-11-30 04:33 | Emergency (ER) | payer OTHER ==
[~2018-11-30] VITALS: Ht 167.6 cm; Wt 92.5 kg
[~2018-11-30 04:33] MED LIST: eliquis PO
--- OUTSIDE RECORDS SUMMARY | 2018-11-30 04:36 | XMS REPORT | Summary of Care ---
Author Author [facility] - Health Organization [facility] - Health Address Unknown Phone Unavailable Care Team Providers Care District Service Manager Name Role Phone Francisco Breaux PCP Mann Bcek Unavailable Reason for Visit * Reason Comments Depression * (KENNEDY) Referred By Contact Referred To Contact Status Reason Specialty Diagnoses / [place] [address] [place] [address] New Request Psychology, Diagnoses Clinical Child & mood Adolescent disturbance P rocedures CONSULT/REFERRAL GL[employer] POL[employer]ER PSYCHOLOGY/MENTAL HEALTH Encounter Details Care Team Description Date Type Department Sofi Gregg, PHD [address] [place], [place] [address] Adjustment disorder with depressed mood (Primary Dx) 11/26/2018 Office Visit [facility] [address] [id number] Allergies No Known Allergiesdocumented as of this encounter (statuses as of 11/27/2018) Medications No known medicationsdocumented as of this encounter (statuses as of 11/27/2018) Active Problems Problem Noted Date Acute blood loss anemia 11/15/2018 Normal spontaneous vaginal delivery 11/14/2018 39 weeks gestation of 11/13/2018 Multiparity 11/13/2018 Obesity affecting in third trimester 11/13/2018 care, subsequent , first trimester 03/19/2018 Obesity (BMI 30-39.9) 07/05/2017 Pelvic mass in female 05/16/2017 Pain pelvic 05/15/2017 Corpus luteum cyst or hematoma 04/19/2017 Overview: Added automatically from request for surgery [id number] Dysmenorrhea 04/19/2017 Overview: Added automatically from request for surgery [id number] Right knee pain 09/10/2014 Muscle tightness 09/10/2014 [...] gynecological examination 03/11/2013 Overview: ICD10 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 Hunter was referred for treatment of baby blues and preven tion of depression by Dr. Sanchez. The current note describes her sy mptoms to inform treatment planning. Screening Instruments: Patient Health Questionnaire-9 (PHQ-9) Generalized Anxiety Disorder-7 (CURT-7) Alcohol Use Disorders Identification Test (AUDIT-C) Primary Care PTSD Screen for DSM-5 (PC-PTSD-5) Identifying Information: The following information comes from a clinical interview with Ms. Hunter, along wi th a review of available medical records. Ms. Hunter is a 28-year-old White female . Presenting Problems: Ms. Hunter reported that her primary concern at this time is crying nonstop s celso the of her son, Rahul, on 11/13/2018. She stated that her health was good during her and there were no issues with the delivery, but as so on as he was born, her had to leave. She reported feeling very upset th at he was not even able to hold their baby before having to go back to work that day. Since then, she has found herself crying each time her leaves for work or school. On the weekends, when he is at home, she feels much better. S he stated that in the past few days, she has not been crying as much, which she attributed to her being at home and her decision to stop . She is also looking forward to December 06 when her will finish school and have more time at home. She stated that she has tried to open up to others about how she feels, but they do not seem to understand. They have offered hand s-on help with the baby and invited her to go out, neither of which has made her feel better. Current coping strategies include staying busy at home and spendi ng some time with her sisters. She stated that she helps her younger sister a l ot, especially since their mother 3 years ago. Specifically, after a lifelong forbes with alcohol use disorder, she rather unexpectedly . Ms. Hunter and her siblings rushed to the hospital to be by their mothers elizabeth e, but were blamed for her passing by their mothers extended family. She sta wanda that she and her siblings often wonder if they could have done more to help their mother. At the same time, she also described feelings of anger and resent ment that her mother consistently chose alcohol over her and her siblings. She stated that they took care of their mother from a young age and never had a true childhood. Even as an adult, she tried to help her mother get treatment. She described having unanswered questions about her mothers alcohol use disorder. She stated that she never had this conversation with her mother, because her m other was a very emotional person and she wanted to protect her feelings. She r eported that she does not often talk about her mother, but after reflecting on t heir relationship today, she believes that part of her distress when her leaves is due to thoughts about how her mother left her when she . Medical and Mental Health History: Ms. Hunter reported being in good health and denied taking any medications at this time. She reported a family history of high blood pressure and diabetes. Ms. Hunter denied past engagement in psychotherapy, and denied a past history of si gnificant mental health issues. She stated that she does not recall experiencin g similar symptoms after the of her older son 7 years ago. She denied cur rent suicidal ideation and denied any past suicide attempts. She reported infre quent alcohol use, and denied use of tobacco or illicit drugs. She stated that she needs about 6 hours of sleep to feel rested, and that some nights are better than others right now. She described feeling fatigued during todays appoint ment. Social History: Ms. Hunter grew up with her 3 sisters and 1 brother. She stated that they moved fr equently because her father was in the , but all live in this area now. She and her met in high school and have been together for 10 years. She described good social support from him and from her aunt who lives in [place]. She stated that she can also go to her sisters and [id number] depending on the issue. She is not currently working, but plans to go back to school in the future to study hair and make-up. She stated that she has a lot of hobbies that she enjoys, such as doing hair and spray tans, crafting with her son, and kathleen ening. Behavioral Observations: Ms. Hunter presented as pleasant, appropriately dressed, and neatly groomed. Her t hinking appeared to be logical and linear. Her speech was of a normal rate and rhythm. There was no behavioral indication of hallucinations. She appeared to be forthcoming in responding to questions and her responses were consistent with information available in the medical record. Her affect was generally euthymic. Results: A measure of depressive symptoms (PHQ-9=11) indicated moderate symptoms of depre ssion. The item pertaining to suicidal ideation was not endorsed. Additionally , a measure of symptoms of generalized anxiety disorder (CURT-7=5) indicated mild symptoms of anxiety. A measure of alcohol use (AUDIT-C=1) indicated that the p atdemetra is drinking within recommended limits. Finally, a screening measure of s ymptoms of traumatic stress (PC-PTSD-5=2) indicated that she is not endorsing cl inically significant symptoms of traumatic stress. Impression: 1. Adjustment Disorder with depressed mood Intervention: Informed consent and confidentiality were discussed with the patient. Her gabriele rns were normalized and validated, and she was provided a brief overview of supp ortive therapy. The treatment plan will be updated accordingly as the patient s mood is monitored at follow-up appointments. Based on a description of this intervention, the patient was amenable to begin treatment. Recommendations: 1. Ms. Hunter would benefit from participation in individual therapy to address her current concerns. 2. Ms. Hunter was scheduled for a follow-up visit on 12/11/2018 at 9 am, per patient request for specific date. She was encouraged to return to clinic sooner if ne eded. Thank you for providing this referral. If you should have any questions, please feel free to contact me. Sofi Gregg, PhD Licensed Psychologist Note: This documentation is my own, and was copied from a word processing source originating outside of [employer]. documented in this encounter Plan of Treatment Care Team Description Date Type Specialty Rosalie Rahman, DO [address] [place] [address] [phone] 12/04/2018 Routine Obstetrics & Gynecology Visit Sofi Gregg, PHD [address] [place] [address] [phone] 12/11/2018 Office Visit Obstetrics & Gynecology Health Maintenance Due Date Last Done Comments INFLUENZA VACCINE 12/23/2018 PAP SMEAR 04/04/2021 04/04/2018, 02/09/2017, 03/11/2013 DTaP,Tdap,and Td Vaccines 09/10/2028 09/10/2018 (2 - Td) PNEUMOCOCCAL 0-64 YEARS Aged Out No longer eligible based COMBINED SERIES on patient's age to complete this topic documented as of this encounter Results Not on filedocumented in this encounter Visit Diagnoses Diagnosis Adjustment disorder with depressed mood - Primary documented in this encounter Insurance Type Payer Benefit Subscriber ID Effective Phone Address Plan / Dates Group Medicaid [employer] [place] xxxxxxxxx 2013- PLAN - MANAGED MEDICAID [place] Present documented as of this encounter
--- OUTSIDE RECORDS SUMMARY | 2018-11-30 04:36 | XMS REPORT | Summary of Care ---
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 Encounter Details Care Team Description Date Type Department Sofi Gregg, PHD [address] [place], [place] [id number] Adjustment disorder with depressed mood (Primary Dx) 11/26/2018 Office Visit [facility]'s [address] [phone] Allergies No Known Allergiesdocumented as [...] Overview: Added automatically from request for surgery [id number] Dysmenorrhea 04/19/2017 Overview: Added automatically from request for surgery [id number] Right knee pain 09/10/2014 Muscle tightness 09/10/2014 [...] gynecological examination 03/11/2013 Overview: 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 Hunter was referred [...] and from her aunt who lives in [place]. She stated that she can also go to her sisters and [id number] depending on the issue. She is not [...] a word processing source originating outside of [employer]. documented in this encounter Plan of Treatment Care Team Description Date Type Specialty Rosalie Rahman, DO [address] [place] [phone] 12/04/2018 Routine Obstetrics & Gynecology Visit Sofi Gregg, PHD [address] [place] [address] [phone] 12/11/2018 Office Visit Obstetrics & Gynecology Health [...]
--- NOTE | 2018-11-30 04:48 | NUR ---
PT HERE FOR C/O UPPER BACK PAIN THAT STARTED TONIGHT; PT DENIES TAKING ANYTHING FOR PAIN; PAIN IS REPRODUCABLE; ER MD IN TRIAGE EVALUATING PT; NO STUDIES INDICATED AT THIS TIME PER ER MD
[2018-11-30] MEDS: DIAZEPAM 5 MG TAB PO PRN (05:20)
[2018-11-30] MEDS: KETOROLAC TROMETHAMINE 60 MG/2 ML VIAL IM ONE (05:20)
[2018-11-30] MEDS ORDERED: ROBAXIN-750750 MG PO (07:07)
== END 2018-11-30 07:48 | disposition home or self-care (01) ==
LOC: ER 04:33
DX: M54.6 Pain in thoracic spine (principal); S23.3XXA Sprain of ligaments of thoracic spine, initial encounter; G89.29 Other chronic pain; Z86.718 Personal history of other venous thrombosis and embolism
CPT/HCPCS: 99283; J1885

== ENCOUNTER 2021-10-21 20:59 | Emergency (ER) | payer OTHER ==
[~2021-10-21] VITALS: Ht 165.1 cm; Wt 91.6 kg
[~2021-10-21 20:59] MED LIST changes: +ROBAXIN-750750 MG PO
[2021-10-21] MEDS ORDERED: IOPAMIDOL 370 MG/ML 100 ML INFUS..BTL INJ ONE (22:18)
[2021-10-22 00:40] VITALS: BP 107/58
== END 2021-10-22 00:40 | disposition home or self-care (01) ==
LOC: FSED 21:38
DX: R07.89 Other chest pain (principal); Z86.711 Personal history of pulmonary embolism; R91.8 Other nonspecific abnormal finding of lung field; R94.31 Abnormal electrocardiogram [ECG] [EKG]
CPT/HCPCS: 71045; 71260; 80053; 81003; 81025; 84484; 85025; 85610; 93005; 99284; Q9967